=== PATIENT | female | born 1950 | race Caucasian/White ===

== ENCOUNTER 2017-08-04 10:38 | Outpatient (CLI) | payer MEDICARE ==
[2017-08-04 11:53] LABS: eGFR (African) > 60; eGFR (Non-African) > 60
== END 2017-08-04 11:23 ==
LOC: RAD 10:38
PROVIDERS: ATTEND Nurse Practitioner Family
DX: Z78.0 Asymptomatic menopausal state (principal); I10 Essential (primary) hypertension; E78.5 Hyperlipidemia, unspecified
CPT/HCPCS: 36415; 77080; 80053; 80061